=== PATIENT | male | born 1985 | race Caucasian/White ===

== ENCOUNTER 2023-07-30 10:08 | Emergency (ER) | payer BC, MEDICAID ==
[~2023-07-30] VITALS: Ht 182.9 cm; Wt 93.0 kg
[2023-07-30] MEDS ORDERED: AMLO10TA59 PO (10:17)
[2023-07-30] MEDS ORDERED: SEMA1PEN SQ (10:17)
[2023-07-30] MEDS ORDERED: KETOROLAC TROMETHAMINE 15 MG INJ ONE (10:35)
[2023-07-30] MEDS ORDERED: KETOROLAC TROMETHAMINE 15 MG INJ IM ONE (10:45)
[2023-07-30] MEDS ORDERED: NAPR-1009 PO (10:48)
[2023-07-30] MEDS ORDERED: PRED20TA PO (10:48)
[2023-07-30 11:13] VITALS: BP 165/100; O2SAT 98
== END 2023-07-30 11:13 | disposition home or self-care (01) ==
LOC: ER 10:10
DX: M25.461 Effusion, right knee (principal); L40.50 Arthropathic psoriasis, unspecified; Z79.899 Other long term (current) drug therapy
CPT/HCPCS: 99283; 96372; J1885; A4606; A4663

== ENCOUNTER 2023-12-30 15:21 | Emergency (ER) | payer MEDICAID, OTHER ==
[~2023-12-30] VITALS: Ht 182.9 cm; Wt 94.8 kg
[~2023-12-30 15:21] MED LIST: AMLO10TA59 PO; NAPR-1009 PO; PRED20TA PO; SEMA1PEN SQ
[2023-12-30 15:59] VITALS: BP 141/86; O2SAT 99
== END 2023-12-30 15:59 | disposition home or self-care (01) ==
LOC: ER 15:35
DX: H92.01 Otalgia, right ear (principal); Z79.899 Other long term (current) drug therapy
CPT/HCPCS: A4606; A4663